=== PATIENT | female | born 1955 | race Caucasian/White ===

== ENCOUNTER 2022-09-25 07:21 | Day surgery (SDC) | payer OTHER ==
[2022-09-25] MEDS ORDERED: NA CHLORIDE 0.9% 1,000 ML ONE (07:47)
[2022-09-25] MEDS ORDERED: propofoL 200 MG/20 ML VIAL IV ONE (08:41)
[2022-09-25] MEDS ORDERED: FENTANYL CITR 100 MCG/2 ML ONE (08:41)
[2022-09-25] MEDS ORDERED: LIDOCAINE 2% MPF 5 ML VIAL ONE (08:41)
[2022-09-25] MEDS ORDERED: MIDAZOLAM HCL 2 MG/2 ML INJ ONE (08:42)
[2022-09-25] MEDS ORDERED: ONDANSETRON 4 MG/2 ML VIAL ONE (08:44)
[2022-09-25] MEDS ORDERED: GLYCOPYRROLATE 0.2 MG/ML SYR ONE (08:46)
[2022-09-25] MEDS ORDERED: ROCURONIUM 50 MG/5 ML VIAL IV ONE (08:46)
[2022-09-25] MEDS ORDERED: NEOSTIGMINE 1 MG/ML -10 ML VIAL ONE (08:48)
[2022-09-25] MEDS: CEFAZOLIN SODIUM 2 GM/VIAL ONE ×3 (08:49→09:42)
[2022-09-25] MEDS: BUPIVACAINE 0.25% PF 30 ML VIAL ONE ×3 (08:50→09:44)
[2022-09-25] MEDS ORDERED: GLUCAGON 1 MG/VIAL IM PRN (10:45)
[2022-09-25] MEDS ORDERED: D50W 25 GM/50 ML SYRINGE IV PRN (10:45)
[2022-09-25] MEDS ORDERED: HOME MED 1 EA UNK (Estradiol [Estradiol] 42.5 GM Cream.Appl) VG SCH (10:45)
[2022-09-25] MEDS ORDERED: IBUPROFEN 200 MG TAB PO PRN (10:47)
[2022-09-25] MEDS ORDERED: PROMETHAZINE INJ 25 MG/ML AMP IV PRN (10:47)
--- NOTE | 2022-09-25 10:51 | P.BOP ---
Preoperative diagnosis: urge incontinence, refractory OAB Postoperative diagnosis: same Primary procedure: [id number], insertion quadripolar tined lead,fluoro guidance,Lf S3 Estimated blood loss: min Specimen: none Findings: 0,1,2 had both toe and antonio, 3-toe better than antonio Anesthesia: General Complications: None Transferred to: Recovery Room Condition: Good
[2022-09-25 12:05] VITALS: O2SAT 96
[2022-09-25 13:06] VITALS: BP 133/67; TEMP 98.3
--- NOTE | 2022-09-25 13:07 | RAD REPORT ---
EXAM DESCRIPTION: RAD - Fluoroscopy <1 Hour - 09/25/2022 12:55 pm CLINICAL HISTORY: SACRAL NEURAL MODULATION COMPARISON: None available. FINDINGS: Eight Images were sent to PACS, documenting needle positions during an image guided pain p rocedure. No radiologist was available for the procedure, nor will any image interpretation he provid ed. Please refer to the procedural report for additional details. Fluoroscopy time: 0.7 Minutes. IMPRESSION: Documentation of fluoroscopy utilization as above.
[2022-09-25] MEDS ORDERED: HOME MED 1 EA UNK (Tizanidine Hcl [Tizanidine Hcl] 4 MG Capsule) PO SCH (14:00)
[2022-09-26] MEDS ORDERED: PANTOPRAZOLE 40MG TABLET PO SCH (09:00)
[2022-09-26] MEDS ORDERED: FAMOTIDINE PO SCH (09:00)
[2022-09-26] MEDS ORDERED: LEVOTHYROXINE SOD 0.125 MG TAB PO SCH (09:00)
[2022-09-26] MEDS ORDERED: HOME MED 1 EA UNK (Magnesium Oxide [Magnesium] 400 MG Capsule) PO SCH (09:00)
[2022-09-26] MEDS ORDERED: GABAPENTIN 100 MG CAP PO SCH (09:00)
[2022-09-26] MEDS ORDERED: ZINC GLUCONATE 50 MG TAB PO SCH (09:00)
[2022-09-26] MEDS ORDERED: [UNRECOGNIZED DRUG - OTHER] PO SCH (09:00)
[2022-09-26] MEDS ORDERED: NPH (HUMAN) 100 UNITS/ML INSULIN SQ SCH (09:00)
[2022-09-26] MEDS ORDERED: LIOTHYRONINE SOD 5 MCG TAB PO SCH (09:00)
[2022-09-26] MEDS ORDERED: TACROLIMUS 1 MG PO SCH (09:00)
[2022-09-26] MEDS ORDERED: ESCITALOPRAM 20 MG TAB PO SCH (09:00)
[2022-09-26] MEDS ORDERED: CA CARB PO SCH (09:00)
[2022-09-26] MEDS ORDERED: MAG HYDROX PO SCH (09:00)
[2022-09-26] MEDS ORDERED: ALENDRONATE SODIUM PO SCH (10:45)
[2022-09-26] MEDS ORDERED: DRISDOL (VITAMIN D=ERGOCALCIFEROL) 50000 UNIT CAP PO SCH (10:45)
== END 2022-09-25 12:55 | disposition home or self-care (01) ==
LOC: OR 07:21
PROVIDERS: ATTEND Obstetrics & Gynecology
PROC: 01HY3MZ Insertion of Neurostimulator Lead into Peripheral Nerve, Percutaneous Approach (ICD-10-PCS; principal; 2022-09-25 08:30)
DX: N39.41 Urge incontinence (principal); N39.3 Stress incontinence (female) (male); N32.81 Overactive bladder; N81.84 Pelvic muscle wasting; N95.2 Postmenopausal atrophic vaginitis; Z94.4 Liver transplant status; I10 Essential (primary) hypertension; E11.9 Type 2 diabetes mellitus without complications
CPT/HCPCS: 64561; 82947 ×2; J2704; J2710; J2001; J2250; J3010; J7030; J2405; 76000

== ENCOUNTER 2022-10-02 08:00 | Day surgery (SDC) | payer OTHER ==
[2022-10-02] MEDS ORDERED: Ringers Lactate 1,000 ML IV ONE (09:19)
[2022-10-02] MEDS ORDERED: CEFAZOLIN SODIUM 2 GM/VIAL ONE (09:55)
[2022-10-02] MEDS ORDERED: MIDAZOLAM HCL 2 MG/2 ML INJ ONE (10:28)
[2022-10-02] MEDS ORDERED: propofoL 200 MG/20 ML VIAL IV ONE (10:28)
[2022-10-02] MEDS ORDERED: FENTANYL CITR 100 MCG/2 ML ONE (10:28)
[2022-10-02] MEDS ORDERED: LIDOCAINE 2% MPF 5 ML VIAL ONE (10:29)
[2022-10-02] MEDS ORDERED: LIDOCAINE 1% W/EPI 1:100,000 50 ML MDV ONE (10:45)
[2022-10-02] MEDS ORDERED: ROCURONIUM 50 MG/5 ML VIAL IV ONE (10:52)
[2022-10-02] MEDS ORDERED: dexAMETHasone 10 MG/ML VIAL ONE (10:53)
[2022-10-02] MEDS ORDERED: KETOROLAC 30 MG/ML INJ ONE (10:53)
[2022-10-02] MEDS ORDERED: ONDANSETRON 4 MG/2 ML VIAL ONE (10:53)
[2022-10-02] MEDS ORDERED: NS 0.9% VIAL 20 ML ONE (11:37)
[2022-10-02] MEDS ORDERED: SUGAMMADEX SODIUM 200 MG/2 ML VIAL IV ONE (12:21)
[2022-10-02] MEDS ORDERED: HYDROCODONE/APAP 5/325 MG TAB PO PRN (12:42)
[2022-10-02] MEDS ORDERED: IBUPROFEN 200 MG TAB PO PRN (12:42)
[2022-10-02] MEDS ORDERED: PROMETHAZINE INJ 25 MG/ML AMP IV PRN (12:42)
--- NOTE | 2022-10-02 12:48 | P.BOP ---
Preoperative diagnosis: Urgency UUI, refractory OAB, LAST Postoperative diagnosis: same Primary procedure: Incision+subcut implantation of sacral nerve stimulator Secondary procedure: electronic analysis+programming, urethral Bulking, cysto Maintenance Pipefitter: Dawn Calixto Estimated blood loss: min Specimen: none Findings: Bulkamid 1.6ml Anesthesia: General Complications: None Implants: Interstim sacral neurostim, Bulkamid Fluids & blood products: UO 200 Transferred to: Recovery Room
[2022-10-02 13:26] VITALS: BP 137/62; TEMP 97.3; O2SAT 100
--- NOTE | 2022-10-02 14:48 | RAD REPORT ---
EXAM DESCRIPTION: RAD - Fluoroscopy <1 Hour - 10/02/2022 1:14 pm CLINICAL HISTORY: SACRAL NEURO MODULATION 2 COMPARISON: Fluoroscopy <1 Hour dated 09/25/2022 FINDINGS/IMPRESSION: Three intraoperative fluoroscopic images were submitted. This shows placement o f a bladder stimulator. Fluoro time: 0 minutes Cumulative dose: 1.05 mGy
== END 2022-10-02 14:54 | disposition home or self-care (01) ==
LOC: OR 08:00
PROVIDERS: ATTEND Obstetrics & Gynecology
PROC: 0JH73BZ Insertion of Single Array Stimulator Generator into Back Subcutaneous Tissue and Fascia, Percutaneous Approach (ICD-10-PCS; principal; 2022-10-02 10:15)
DX: N39.46 Mixed incontinence (principal); N32.81 Overactive bladder
CPT/HCPCS: 82947; 64590; J2704; J2001; J2250; J3010; J1100; A4216; J7120; J2405; L8606; 76000

== ENCOUNTER 2023-06-20 20:51 | Inpatient (IN) | payer OTHER ==
[2023-06-20] MEDS ORDERED: ALBUMIN HUMAN 25% 100 ML IV ONE (21:44)
[2023-06-20] MEDS ORDERED: NA CHLORIDE 0.9% 1,000 ML ONE (21:44)
[2023-06-20] MEDS ORDERED: NA CHLORIDE 0.9% 0 ML ONE (21:44)
[2023-06-20 21:51] LABS: Absolute Lymphocytes (CBC) 0.8 K/uL (0.7-4.9); Hematocrit 31.1 % (36.0-45.0); Lymphocytes % 15.6 % (15.3-44.8); MCV 90.3 fL (80-100); MPV 6.2 fL (7.6-11.3); Platelets 155 thou/uL (152-406); RBC Red Blood Cell Count 3.45 M/uL (3.86-4.86)
[2023-06-20 22:07] LABS: Protime INR 1.61
--- NOTE | 2023-06-20 22:16 | RAD REPORT ---
EXAM DESCRIPTION: [place] Single View06/20/2023 9:49 pm CLINICAL HISTORY: CHEST PAIN COMPARISON: Chest Pa And Lat (2 Views) dated 05/18/2021; Chest Pa And Lat (2 Views) dated 06/08/2020; CHEST PA AND LAT 2 VIEW dated 10/27/2010; TECHNIQUE: Portable AP view of the chest. FINDINGS: Moderate to large left pleural effusion. Marked cardiomegaly. Central interstitial promine nce. . The mediastinal contours are unremarkable. IMPRESSION: Findings suggestive of central congestion/CHF, with a moderate pleural effusion. Underl johnny left lung pneumonia cannot be excluded.
[2023-06-20 23:12] LABS: Potassium 4.1 mEq/L (3.5-5.1)
[2023-06-20 23:13] LABS: Bilirubin Direct 0.2 mg/dL (0-0.2); Bilirubin Indirect, Calculated 0.4 mg/dL (0.2-0.8); Bilirubin Total 0.6 mg/dL (0.2-1.0)
[2023-06-20 23:14] LABS: Albumin 2.9 g/dL (3.4-5.0); Protein, Total 5.7 g/dL (6.4-8.2)
[2023-06-20 23:17] LABS: Troponin High Sensitivity 11.8 (<58.9)
[2023-06-20 23:18] LABS: C-Reactive Protein 21.8; Magnesium 1.6
--- NOTE | 2023-06-21 00:46 | EDPHYS ---
Physician Documentation [facility] Name: Marzena Sidhu Age: 67 yrs Sex: Female : 1955 Arrival Date: 06/20/2023 Time: 20:51 Bed 7 Private MD: ED Physician Eamon Alfaro HPI: 06/20 20:56 This 67 yrs old Female presents to ER via Unassigned with complaints of LOW sp4 BLOOD PRESSURE, Dizziness, Shortness Of Breath. 21:21 The patient is a 67-year-old female with history of fibromyalgia history of atrial sp4 fibrillation history of right pleural effusion history of liver transplant. Patient states she has been feeling unwell for the past 4 months. She was diagnosed with atrial fibrillation started on Eliquis and metoprolol. Patient was at Dr. Glass office at [facility] where it was noted that her pressure was low today. Patient reports dizziness and shortness of breath denied chest pain. Patient reports generalized weakness. . Historical: - Allergies: 21:08 No Known Allergies; rv - PMHx: 21:08 Atrial fibrillation; fluid in the left lung; liver transplant; rv - PSHx: 21:08 liver transplant; Cholecystectomy; Total abdominal hysterectomy; rv - Immunization history:: Adult Immunizations up to date. - Social history:: Smoking status: Patient/guardian denies using tobacco, the patient reports quitting approximately 6 years ago. - Family history:: not pertinent. ROS: 21:21 Constitutional: Negative for fever, chills, and weight loss, positive generalized sp4 weakness dizziness, positive shortness of breath Eyes: Negative for injury, pain, redness, and discharge, ENT: Negative for injury, pain, and discharge, Neck: Negative for injury, pain, and swelling, Cardiovascular: Negative for chest pain, palpitations, and edema, 21:21 All other systems are negative, Exam: 21:21 Constitutional: This is a well developed, well nourished patient who is awake, alert, sp4 and in no acute distress. Ill appearing, gen weakness, Head/Face: Normocephalic, atraumatic. Eyes: Pupils equal round and reactive to light, extra-ocular motions intact. Lids and lashes normal. Conjunctiva and sclera are not injected. Cornea within normal limits. Periorbital areas with no swelling, redness, or edema. ENT: Nares patent. No nasal discharge, no septal abnormalities noted. Tympanic membranes are normal and external auditory canals are clear. Oropharynx with no redness, swelling, or masses, exudates, or evidence of obstruction, uvula midline. Mucous membranes moist. Neck: Trachea midline, no thyromegaly or masses palpated, and no cervical lymphadenopathy. Supple, full range of motion without nuchal rigidity, or vertebral point tenderness. Chest/axilla: Normal chest wall appearance and motion. Nontender with no deformity. No lesions are appreciated. Cardiovascular: Regular rate and rhythm with a normal S1 and S2. No gallops, murmurs, or rubs. Normal PMI, no JVD. No pulse deficits. Respiratory: Lungs have equal breath sounds bilaterally, clear to auscultation and percussion. No rales, rhonchi or wheezes noted. No increased work of breathing, no retractions or nasal flaring. Abdomen/GI: Soft, non-tender, with normal bowel sounds. No distension or tympany. No guarding or rebound. No evidence of tenderness throughout. Back: No spinal tenderness. No costovertebral tenderness. Skin: Warm, dry with normal turgor. Normal color with no rashes, no lesions, and no evidence of cellulitis. MS/ Extremity: Pulses equal, no cyanosis. Neurovascular intact. Full, normal range of motion. Neuro: Awake and alert, GCS 15, oriented to person, place, time, and situation. Cranial nerves II-XII grossly intact. Motor strength 5/5 in all extremities. Sensory grossly intact. Psych: Awake, alert, with orientation to person, place and time. Behavior, mood, and affect are within normal limits 06/21 00:47 ECG was reviewed by the Attending Physician. EKG 2130 there is sinus bradycardia at the sp4 rate of 50, right bundle branch block, otherwise normal EKG. Vital Signs: 06/20 21:04 BP 93 / 45; Pulse 51; Resp 18; Temp 98; Pulse Ox 94% on R/A; Weight 77.56 kg; Height 5 rv ft. 4 in. ; 22:30 BP 118 / 69; Pulse 52; Resp 18; Pulse Ox 96% ; rv1 23:31 BP 118 / 66; Pulse 49; Resp 19; Pulse Ox 96% ; jj7 11/17 00:29 BP 109 / 61; Pulse 55; Resp 20 S; Pulse Ox 95% on 2 lpm NC; jw7 01:30 BP 107 / 64; Pulse 49; Resp 17 S; Pulse Ox 97% on 2 lpm NC; jw7 02:30 BP 108 / 69; Pulse 50; Resp 16 S; Pulse Ox 96% on 2 lpm NC; jw7 03:30 BP 111 / 65; Pulse 52; Resp 17; Pulse Ox 94% ; jj7 04:30 BP 107 / 62; Pulse 48; Resp 15; Pulse Ox 97% ; jj7 05:32 BP 124 / 63; Pulse 49; Resp 16; Pulse Ox 98% ; jj7 06:35 BP 117 / 78; Pulse 51; Resp 13; Pulse Ox 96% on 2 lpm NC; jj7 06/20 21:04 Body Mass Index 29.35 (77.56 kg, 162.56 cm) rv MDM: 06/20 20:56 Patient medically screened. sp4 06/21 00:39 ED course: CT report - IMPRESSION: 1. No evidence for thoracic aortic aneurysm or sp4 dissection. 2. Stable 3.1 cm abdominal aortic aneurysm. Recommend follow-up every 3 years. Reference: J Am José Miguel Radiol 2013;10:789-794. 3. Large left pleural effusion. Extensive near complete left lung consolidation/collapse. Superimposed infiltrate is not excluded. No appreciable central mass. Follow-up is suggested. 4. Mild circumferential urinary bladder wall thickening. Please correlate clinically for cystitis. 5. Other findings as above. Electronically signed by: Richy Garnica MD 06/21/2023 12:17 AM. ED course: Chest X ray - EXAM DESCRIPTION: FANNYChest Single View06/20/2023 9:49 pm CLINICAL HISTORY: CHEST PAIN COMPARISON: Chest Pa And Lat (2 Views) dated 05/18/2021; Chest Pa And Lat (2 Views) dated 06/08/2020; CHEST PA AND LAT 2 VIEW dated 10/27/2010; TECHNIQUE: Portable AP view of the chest. FINDINGS: Moderate to large left pleural effusion. Marked cardiomegaly. Central interstitial prominence. . The mediastinal contours are unremarkable. IMPRESSION: Findings suggestive of central congestion/CHF, with a moderate pleural effusion. Underlying left lung pneumonia cannot be excluded.. 00:46 Differential diagnosis: cardiac arrhythmia, generalized weakness, head injury, sp4 hypovolemia, idiopathic dizziness, near-syncope, . Data reviewed: vital signs, nurses notes, old medical records, lab test result(s), EKG, radiologic studies, CT scan, plain films. Consideration of Admission/Observation Patient was admitted/placed on observation. Escalation of care including admission/observation considered. Management of patient was discussed with the following: Hospitalist: Hospitalist. Drill Punch Operator: Global Program Director. ED course: Patient has moderate to large left-sided pleural effusion without any signs of lung mass. ED course: Patient also has some signs of congestive heart failure without signs of atrial fibrillation. Patient has sinus bradycardia on her EKG. She warrants admission for pulmonology consultation. Dr. Bean with pulmonology was consulted for drainage of pleural effusion. . 06/20 20:56 Order name: COVID-19 SARS RT PCR; Complete Time: 22:54 sp4 06/20 20:56 Order name: Influenza Screen (a \T\ B); Complete Time: 22:54 sp4 06/20 21:20 Order name: Basic Metabolic Panel; Complete Time: 23:25 sp4 06/20 21:20 Order name: CBC with Diff; Complete Time: 22:54 sp4 06/20 21:20 Order name: LFT's; Complete Time: 23:25 sp4 06/20 21:20 Order name: Magnesium; Complete Time: 23:25 sp4 06/20 21:20 Order name: NT PRO-BNP; Complete Time: 23:25 sp4 06/20 21:20 Order name: PT-INR; Complete Time: 22:54 sp4 06/20 21:20 Order name: Troponin HS; Complete Time: 23:25 sp4 06/20 21:21 Order name: CRP; Complete Time: 23:25 sp4 06/21 08:38 Order name: Basic Metabolic Panel [facility] 06/21 08:38 Order name: Basic Metabolic Panel [facility] 06/21 08:38 Order name: Basic Metabolic Panel [facility] 06/21 08:38 Order name: Basic Metabolic Panel [facility] 06/21 08:38 Order name: Basic Metabolic Panel [facility] 06/21 08:38 Order name: Basic Metabolic Panel [facility] 06/21 08:38 Order name: CBC with Automated Diff [facility] 06/21 08:38 Order name: CBC with Automated Diff EDMS 06/21 08:38 Order name: CBC with Automated Diff EDMS 06/21 08:38 Order name: CBC with Automated Diff EDMS 06/21 08:38 Order name: CBC with Automated Diff EDMS 06/21 08:38 Order name: CBC with Automated Diff EDMS 06/21 08:38 Order name: Magnesium EDMS 06/21 08:38 Order name: Magnesium EDMS 06/21 08:38 Order name: Magnesium EDMS 06/21 08:38 Order name: Magnesium EDMS 06/21 08:38 Order name: Magnesium EDMS 06/21 08:38 Order name: Magnesium EDMS 06/21 08:38 Order name: Phosphorus EDMS 06/21 08:38 Order name: Phosphorus EDMS 06/21 08:38 Order name: Phosphorus EDMS 06/21 08:38 Order name: Phosphorus EDMS 06/21 08:38 Order name: Phosphorus EDMS 06/21 08:38 Order name: Phosphorus EDMS 06/21 08:38 Order name: Troponin High Sensitivity EDMS 06/21 08:38 Order name: Troponin High Sensitivity EDMS 06/21 08:38 Order name: Troponin High Sensitivity EDMS 06/21 14:12 Order name: Body Fluid Cell Count EDMS 06/21 14:22 Order name: Gram Stain EDMS 06/20 21:20 Order name: XRAY Chest (1 view); Complete Time: 22:54 sp4 06/20 21:21 Order name: CT Aorta for Dissection sp4 06/21 09:08 Order name: Thoracentesis w/ US Guide EDMS 06/21 11:09 Order name: RAD EDMS 06/20 21:20 Order name: EKG; Complete Time: 21:22 sp4 06/20 21:20 Order name: Cardiac monitoring; Complete Time: 21:28 sp4 06/20 21:20 Order name: EKG - Nurse/Tech; Complete Time: 21:36 sp4 06/20 21:20 Order name: IV Saline Lock; Complete Time: 21:43 sp4 06/20 21:20 Order name: Labs collected and sent; Complete Time: 21:43 sp4 06/20 21:20 Order name: O2 Per Protocol; Complete Time: 21:28 sp4 06/20 21:20 Order name: O2 Sat Monitoring; Complete Time: 21:28 sp4 EC:47 Rate is 50 beats/min. Rhythm is regular, Sinus bradycardia. QRS [place] is Normal. [place] sp4 interval is normal. QRS interval is prolonged. QT interval is normal. No Q waves. T waves are Normal. No ST changes noted. Clinical impression: No evidence of ischemia. Interpreted by me. Reviewed by me. Administered Medications: 06/20 21:46 Drug: NS 0.9% IV 1000 ml IV at 125 ml/hr continuous Route: IV; Rate: 125 ml/hr; Site[facility] left antecubital; 06/21 00:33 Follow up: IV Status: Order to discontinue infusion jj7 03:18 Follow up: Response: No adverse reaction; IV Status: Completed infusion; IV Intake: jw7 100ml 06/20 22:20 Drug: Albumin IVPB 25 grams 100 ml IVPB once; (Note: Albumin 25% concentration) Volume: jw7 100 ml; Route: IVPB; Site: left antecubital; 06/21 03:18 Follow up: Response: No adverse reaction; IV Status: Completed infusion; IV Intake: [id number] 01:00 Drug: HYDROcodone-acetaminophen PO 5 mg-325 mg 2 tabs PO once Route: PO; jw7 03:24 Follow up: Response: No adverse reaction; Marked relief of symptoms jw7 01:00 Drug: Ondansetron PO 4 mg PO once Route: PO; jw7 03:24 Follow up: Response: No adverse reaction jw7 03:24 Not Given (Physician Discretion): grams 100 ml IVPB once; (Note: Albumin 25% jw7 concentration) 04:32 Drug: [place] PO 10 mg-325 mg 1 tabs PO once Route: PO; jw7 04:32 Drug: MetoCLOPramide PO 10 mg PO once Route: PO; jw7 Disposition Summary: 06/21/23 00:45 Hospitalization Ordered Notes: Hospitalization Status: Inpatient Admission sp4 Provider: Carmelo Eaton sp4 Condition: Stable sp4 Problem: new sp4 Symptoms: are unchanged sp4 Bed/Room Type: Standard sp4 Location: Telemetry/MedSurg (Inpatient)(06/21/23 15:58) eb Room Assignment: [facility](06/21/23 15:58) eb Diagnosis - Pleural effusion, not elsewhere classified sp4 - Acute dyspnea, left large pleural effusion, congestive heart failure with sp4 exacerbation Forms: - Medication Reconciliation Form sp4 - SBAR form sp4 - Leadership Thank You Letter sp4 Signatures: Dispatcher [employer] Jonathan Kerns, RN RN bp Mari Maria Ronaldo, RN RN Rachel Bernard RN RN jw7 Eamon Alfaro MD MD sp4 Pawel Alvarado RN jj7 Corrections: (The following items were deleted from the chart) 05:44 00:45 Telemetry/MedSurg (Inpatient) sp4 bp 05:44 00:45 sp4 bp 15:58 05:44 BR ER HOLD bp eb 15:58 05:44 ERHOLD- bp eb 15:58 15:58 eb eb
--- NOTE | 2023-06-21 00:46 | ER ---
Nurse's Notes [facility] Name: Marzena Sidhu Age: 67 yrs Sex: Female : 1955 Arrival Date: 06/20/2023 Time: 20:51 Bed 7 Private MD: Diagnosis: Pleural effusion, not elsewhere classified;Acute dyspnea, left large pleural effusion, congestive heart failure with exacerbation Presentation: 06/20 21:04 Chief complaint: Patient states: new blood pressure medication started today, rv complained of dizziness after taking medication this morning, being treated for A-fib and fluid in the left lung. Coronavirus screen: At this time, the client does not indicate any symptoms associated with coronavirus-19. Ebola Screen: No symptoms or risks identified at this time. Initial Sepsis Screen: Does the patient meet any 2 criteria? No. Patient's initial sepsis screen is negative. Does the patient have a suspected source of infection? No. Patient's initial sepsis screen is negative. Risk Assessment: Do you want to hurt yourself or someone else? Patient reports no desire to harm self or others. Onset of symptoms was June 20, 2023. 21:04 Method Of Arrival: Ambulatory rv 21:04 Acuity: LYNDA 2 rv Triage Assessment: 21:08 General: Appears comfortable, Behavior is calm, cooperative. Pain: Denies pain. Neuro: rv Level of Consciousness is awake, alert, Oriented to person, place, time, situation. Cardiovascular: Capillary refill < 3 seconds Patient's skin is warm and dry. Respiratory: Reports shortness of breath on exertion Onset: The symptoms/episode began/occurred gradually, the patient has mild shortness of breath. GI: No signs and/or symptoms were reported involving the gastrointestinal system. : No signs and/or symptoms were reported regarding the genitourinary system. Derm: Skin is intact. Historical: - Allergies: 21:08 No Known Allergies; rv - PMHx: 21:08 Atrial fibrillation; fluid in the left lung; liver transplant; rv - PSHx: 21:08 liver transplant; Cholecystectomy; Total abdominal hysterectomy; rv - Immunization history:: Adult Immunizations up to date. - Social history:: Smoking status: Patient/guardian denies using tobacco, the patient reports quitting approximately 6 years ago. - Family history:: not pertinent. Screenin:17 [facility] ED Fall Risk Assessment (Adult) History of falling in the last 3 months, jw7 including since admission No falls in past 3 months (0 pts) Score/Fall Risk Level 0 - 2 = Low Risk Oriented to surroundings, Maintained a safe environment. Abuse screen: Denies threats or abuse. Denies injuries from another. Nutritional screening: No deficits noted. Tuberculosis screening: No symptoms or risk factors identified. Assessment: 21:17 General: see triage assessment. jw7 22:00 Reassessment: Patient appears in no apparent distress at this time. No changes from 7 previously documented assessment. Patient and/or family updated on plan of care and expected duration. Pain level reassessed. Patient is alert, oriented x 3, equal unlabored respirations, skin warm/dry/pink. 23:15 Reassessment: Patient appears in no apparent distress at this time. No changes from jw7 previously documented assessment. Patient and/or family updated on plan of care and expected duration. Pain level reassessed. Patient is alert, oriented x 3, equal unlabored respirations, skin warm/dry/pink. 06/21 00:27 Cardiovascular: Rhythm is sinus bradycardia. Respiratory: Airway is patent Trachea jw7 midline Respiratory effort is even, unlabored, Respiratory pattern is regular, symmetrical, Breath sounds with crackles in left upper lobe and left lower lobe. 01:30 Reassessment: Patient appears in no apparent distress at this time. No changes from jw7 previously documented assessment. Patient and/or family updated on plan of care and expected duration. Pain level reassessed. Patient is alert, oriented x 3, equal unlabored respirations, skin warm/dry/pink. 02:21 Reassessment: Patient appears in no apparent distress at this time. Patient and/or jw7 family updated on plan of care and expected duration. Pain level reassessed. Patient is alert, oriented x 3, equal unlabored respirations, skin warm/dry/pink. Patient states symptoms have improved. 03:25 Reassessment: Patient appears in no apparent distress at this time. No changes from jw7 previously documented assessment. Patient and/or family updated on plan of care and expected duration. Pain level reassessed. Patient is alert, oriented x 3, equal unlabored respirations, skin warm/dry/pink. Vital Signs: 06/20 21:04 BP 93 / 45; Pulse 51; Resp 18; Temp 98; Pulse Ox 94% on R/A; Weight 77.56 kg; Height 5 rv ft. 4 in. ; 22:30 BP 118 / 69; Pulse 52; Resp 18; Pulse Ox 96% ; rv1 23:31 BP 118 / 66; Pulse 49; Resp 19; Pulse Ox 96% ; jj7 06/21 00:29 BP 109 / 61; Pulse 55; Resp 20 S; Pulse Ox 95% on 2 lpm NC; jw7 01:30 BP 107 / 64; Pulse 49; Resp 17 S; Pulse Ox 97% on 2 lpm NC; jw7 02:30 BP 108 / 69; Pulse 50; Resp 16 S; Pulse Ox 96% on 2 lpm NC; jw7 03:30 BP 111 / 65; Pulse 52; Resp 17; Pulse Ox 94% ; jj7 04:30 BP 107 / 62; Pulse 48; Resp 15; Pulse Ox 97% ; jj7 05:32 BP 124 / 63; Pulse 49; Resp 16; Pulse Ox 98% ; jj7 06:35 BP 117 / 78; Pulse 51; Resp 13; Pulse Ox 96% on 2 lpm NC; jj7 06/20 21:04 Body Mass Index 29.35 (77.56 kg, 162.56 cm) rv ED Course: 06/20 20:55 Patient arrived in ED. ag3 20:56 Eamon Alfaro MD is Attending Physician. sp4 21:08 Triage completed. rv 21:08 Arm band placed on right wrist. rv 21:17 Patient has correct armband on for positive identification. Bed in low position. Call [facility] light in reach. Side rails up X2. 21:21 Influenza Screen (a \T\ B) Sent. cg3 21:21 COVID-19 SARS RT PCR Sent. cg3 21:35 Inserted saline lock: 20 gauge in left antecubital area, using aseptic technique. Blood jj7 collected. 21:40 Pawel Alvarado RN is Primary Nurse. jj7 21:43 Basic Metabolic Panel Sent. jj7 21:43 CBC with Diff Sent. jj7 21:43 LFT's Sent. jj7 21:43 Magnesium Sent. jj7 21:43 NT PRO-BNP Sent. jj7 21:43 PT-INR Sent. jj7 21:43 Troponin HS Sent. jj7 21:44 Influenza Screen (a \T\ B) Sent. jj7 21:45 COVID-19 SARS RT PCR Sent. jj7 21:51 XRAY Chest (1 view) In Process Unspecified. EDMS 23:48 CT Aorta for Dissection In Process Unspecified. EDMS 06/21 00:44 Carmelo Eaton MD is Hospitalizing Provider. sp4 03:28 Provided Education on: Need for admit. jw7 03:28 No provider procedures requiring assistance completed. Patient admitted, IV remains in jw7 place. Administered Medications: 06/20 21:46 Drug: NS 0.9% IV 1000 ml IV at 125 ml/hr continuous Route: IV; Rate: 125 ml/hr; Site: [facility] left antecubital; 06/21 00:33 Follow up: IV Status: Order to discontinue infusion jj7 03:18 Follow up: Response: No adverse reaction; IV Status: Completed infusion; IV Intake: jw7 100ml 06/20 22:20 Drug: Albumin IVPB 25 grams 100 ml IVPB once; (Note: Albumin 25% concentration) Volume: jw7 100 ml; Route: IVPB; Site: left antecubital; 06/21 03:18 Follow up: Response: No adverse reaction; IV Status: Completed infusion; IV Intake: 81raph4 01:00 Drug: HYDROcodone-acetaminophen PO 5 mg-325 mg 2 tabs PO once Route: PO; jw7 03:24 Follow up: Response: No adverse reaction; Marked relief of symptoms jw7 01:00 Drug: Ondansetron PO 4 mg PO once Route: PO; jw7 03:24 Follow up: Response: No adverse reaction jw7 03:24 Not Given (Physician Discretion): [id number] grams 100 ml IVPB once; (Note: Albumin 25% jw7 concentration) 04:32 Drug: [place] PO 10 mg-325 mg 1 tabs PO once Route: PO; jw7 04:32 Drug: MetoCLOPramide PO 10 mg PO once Route: PO; jw7 Medication: 03:27 VIS not applicable for this client. jw7 Intake: 03:18 IV: 50ml; Total: 50ml. jw7 03:18 IV: 100ml; Total: 150ml. jw7 Outcome: 00:45 Decision to Hospitalize by Provider. sp4 17:40 Patient left the ED. hb Signatures: Dispatcher [employer] EDMS Cookie Hebert RN RN Aftab Zacarias, RN RN Sehlby Mejia ag3 Rachel Bernard RN RN jw7 Pawel Alvarado RN RN jj7 Marzena Willams rv1 Eamon Alfaro MD MD sp4 Romana Rizo 3 Corrections: (The following items were deleted from the chart) 03:23 06/20 21:46 Albumin IVPB 25 grams 100 ml IVPB in left antecubital jw7 jw7 06/21 03:26 02:21 Reassessment: Patient appears in no apparent distress at this time. No changes jw7 from previously documented assessment. Patient and/or family updated on plan of care and expected duration. Pain level reassessed. Patient is alert, oriented x 3, equal unlabored respirations, skin warm/dry/pink. jw7
[2023-06-21] MEDS ORDERED: HYDROCODONE/APAP 5/325 MG TAB ONE (01:01)
[2023-06-21] MEDS ORDERED: ONDANSETRON 4 MG (ODT) TAB ONE (01:01)
[2023-06-21] MEDS ORDERED: METOCLOPRAMIDE 5 MG TAB ONE ×2 (04:35→04:45)
[2023-06-21] MEDS ORDERED: HYDROCODONE/APAP 10/325 TAB ONE ×3 (04:35→17:18)
[2023-06-21] MEDS ORDERED: ACETAMINOPHEN 500 MG TAB PO PRN (08:28)
[2023-06-21] MEDS ORDERED: HEPARIN 5000 UNIT/ML 1 ML VIAL SQ SCH (09:00)
[2023-06-21] MEDS ORDERED: GABAPENTIN 300 MG CAP PO SCH (09:08)
--- NOTE | 2023-06-21 09:21 | P.HP ---
Certification for Inpatient Patient admitted to: Observation With expected LOS: >2 Midnights Practitioner: I am a practitioner with admitting privileges, knowledge of patient current condition, hospital course, and medical plan of care. Services: Services provided to patient in accordance with Admission requirements found in Title 42 Section 412.3 of the Code of Federal Regulations Patient History Date of Service: 06/21/23 Reason for admission: SOB History of Present Illness: Marzena Sidhu is a 67-year-old female with past medical history hypothyroidism, liver transplant 2018, diabetes type 2IDDM, chronic pain from scoliosis and fibromyalgia, Atrial fibrillation, and right pleural effusion who presents to the ED with complaints of shortness of breath, dizziness, low blood pressure. Marzena reports shortness of breath onset yesterday and she made a doctor's appointment for today where her low blood pressure was found. Upon examination CT scan reported large pleural effusion to left lung space requiring thoracentesis. Dr. Henderson performed that thoracentesis this morning pulling out to 1.8 L of fluid which was sent to the lab for evaluation. Marzena tolerated this well. On initial examination Marzena is on room 2 L nasal cannula, able to talk complete sentences, and in no acute distress. while in the ED she was given albumin, Reglan, and 1500 normal saline. Initial vital BP 93 / 45; Pulse 51; Resp 18; Temp 98; Pulse Ox 94% on R/A. Lab values mostly unremarkable BNP 1506. CT CAP reports "Stable 3.1 cm abdominal aortic aneurysm, Large left pleural effusion. Extensive near complete left lung consolidation/collapse. Superimposed infiltrate is not excluded". EKG reports "Marked sinus bradycardia, Right bundle branch block, Abnormal ECG, Compared to ECG 08/15/2010 09:11:44 Right bundle-branch block now present Sinus rhythm no longer present" Chest x-ray report "suggestive of central congestion/CHF, with a moderate pleural effusion. Underlying left lung pneumonia cannot be excluded." Echocardiogram report "EF 56%, mild mitral and tricuspid regurgitation, moderate diastolic dysfunction" Marzena will be admitted to hospitalist service for further evaluation and treatment. Allergies No Known Allergies Allergy (Verified 09/19/22 12:15) Home Medications: Alendronate Sodium 70 mg PO EVERY 7TH DAY 09/19/22 Ergocalciferol (Vitamin D2) [Vitamin D2] 50,000 unit PO WE 09/19/22 Escitalopram Oxalate 20 mg PO DAILY 09/19/22 Gabapentin 2 tab PO BID 09/19/22 Insulin NPH Human Isophane [Novolin N] 10 unit SQ DAILY 09/19/22 Levothyroxine Sodium 1 tab PO DAILY 09/19/22 Liothyronine Sodium [Cytomel] 5 mcg PO DAILY 09/19/22 Magnesium Oxide [Magnesium] 400 mg PO DAILY 09/19/22 Pantoprazole Sodium 2 tab PO DAILY 09/19/22 Tacrolimus 1 mg PO DAILY 09/19/22 Zinc Gluconate [Zinc] 50 mg PO DAILY 09/19/22 estradioL [Estradiol] 2 mg VG DIRECTED 09/19/22 Baclofen 10 mg PO BEDTIME 06/21/23 Fludrocortisone [Florinef] 0.1 mg PO DIRECTED 06/21/23 Hydralazine HCl 25 mg PO DIRECTED 06/21/23 Hydralazine HCl 50 mg PO DAILY 06/21/23 Metoprolol Tartrate 25 mg PO BID 06/21/23 Rivaroxaban [Xarelto] 20 mg PO DAILY 06/21/23 Tizanidine HCl 2 mg PO BEDTIME 06/21/23 Torsemide [Demadex*] 20 mg PO DAILY 06/21/23 Torsemide [Demadex] 20 mg PO DAILY 06/21/23 Review of Systems General: Weakness Respiratory: Shortness of Breath Cardiovascular: Palpitations Neurological: Other ("foggy") Physical Examination - Physical Exam General: Alert, In no apparent distress, Oriented x3 HEENT: Atraumatic, Normocephalic, PERRLA Neck: Supple, 2+ carotid pulse no bruit, JVD not distended Respiratory: Diminished Cardiovascular: No edema, Irregular heart rate/rhythm (bradycardic) Capillary refill: <2 Seconds Gastrointestinal: Normal bowel sounds, Soft and benign Musculoskeletal: No clubbing, No swelling, No contractures Integumentary: No rashes, No breakdown, No significant lesion Neurological: Normal speech, Normal strength at 5/5 x4 extr, Normal tone - Studies Laboratory Data (last 24 hrs) 06/20/23 06/20/23 06/20/23 21:38 21:38 21:38 WBC 5.10 Hgb 10.5 L Hct 31.1 L Plt Count 155 PT 17.7 H INR 1.61 Sodium 137 Potassium 4.1 BUN 30 H Creatinine 1.41 H Glucose 159 H Magnesium 1.6 Total Bilirubin 0.6 AST 18 ALT 16 Alkaline Phosphatase 134 H Microbiology Data (last 24 hrs): 06/20/23 21:18 Nasopharnyx Influenza Type A Antigen Screen - Final 06/20/23 21:18 Nasopharnyx Influenza Type B Antigen Screen - Final Assessment and Plan - Plan Assessment and Plan Acute respiratory failure s/s Left sided pleural effusion Left sided pleural effusion US guided Throacentesis today, 1.8 liters off On 3 LNC sating 96% CT CAP reports Stable 3.1 cm abdominal aortic aneurysm, Large left pleural effusion. Extensive near complete left lung consolidation/collapse. Superimposed infiltrate is not excluded. s/p Liver Transplant Continue home medication tacrolimus/Prograf patient provides Stable 3.1 cm abdominal aortic aneurysm Incidental finding on CT CAP Outpatient follow-up MODERATE DIASTOLIC DYSFUNCTION Afib Rate controlled with metoprolol for a short time Now on torsemide On Telemetry xarelto when appropriate EKG showed Sinus Patrick 50 EF 56% DM2 IDDM Novolog N 10 units daily Accucheck with SSI Serum glucose A1C pending DVT ppx: on xarelto Full code LOS 2-3 days Discharge Plan: Home Plan to discharge in: 24 Hours - Advance Directives Does patient have a Living Will: No Does patient have a Durable POA for Healthcare: No Time Spent Managing Pts Care (In Minutes): 55
[2023-06-21] MEDS ORDERED: GABAPENTIN 300 MG CAP ONE (09:45)
--- NOTE | 2023-06-21 11:08 | RAD REPORT ---
EXAM DESCRIPTION: RAD - Chest Single View - 06/21/2023 11:03 am CLINICAL HISTORY: Thoracentesis IMPRESSION: A pneumothorax is not present status post left thoracentesis
[2023-06-21] MEDS: HYDROCODONE/APAP 10/325 TAB PO PRN ×3 (11:30→22:53)
--- NOTE | 2023-06-21 13:15 | RAD REPORT ---
EXAM DESCRIPTION: US - Thoracentesis w/ US Guide - 06/21/2023 11:00 am CLINICAL HISTORY: Left pleural effusion TECHNIQUE: The risks, benefits alternatives to the procedure were explained to the patient and infor med consent obtained. Skin and deeper tissues anesthetized with lidocaine. Under sonographic guidance, an 8 Greek catheter was placed into the posterior lower left pleural spa ce. 1.8 liters of yellow fluid removed. Fluid given to the laboratory Patient experienced no immediate complication IMPRESSION: Thoracentesis
--- NOTE | 2023-06-21 14:02 | RAD REPORT ---
EXAM DESCRIPTION: CT - Angio Aorta For Dissection - 06/21/2023 6:49 am dyspnea, aortic enlargement TECHNIQUE: Axial computed tomographic angiography images of the chest, abdomen and pelvis with intra venous contrast. Sagittal and coronal reformatted images were created and reviewed. This CT exam was performed using one or more of the following dose reduction techniques: automated exposure cont rol, adjustment of the mA and/or kV according to patient size, and/or use of iterative reconstruction technique. MIP reconstructed images were created and reviewed. COMPARISON: Chest abdomen pelvis CT dated 03/03/2020 FINDINGS: VASCULATURE: Aorta: Moderate atherosclerotic disease. No thoracic aortic aneurysm. Infrarenal abdominal aort ic aneurysm measuring 3.1 cm in diameter without significant interval change. No dissection. Pulmonary arteries: Unremarkable as visualized. No pulmonary embolism is identified. Great vessels of aortic arch: No acute findings. No dissection. No arterial occlusion or signif icant stenosis. Celiac trunk and mesenteric arteries: Moderate atherosclerotic narrowing of the celiac trunk at its origin. Renal arteries: Mild to moderate atherosclerotic narrowing of the bilateral renal artery origins. Iliac arteries: No acute findings. No occlusion or significant stenosis. CHEST: Lungs: Near complete left upper lobe and lingular consolidation/collapse. Complete left lower lob e consolidation/collapse. Right lower lobe calcified granuloma. Pleural space: Large left pleural effusion. No pneumothorax. Heart: The heart is mildly enlarged. Coronary artery calcification. No significant pericardial effusion. Mediastinum: Calcified mediastinal and bilateral hilar lymph nodes. ABDOMEN: Liver: Prior liver transplant. Gallbladder and bile ducts: The gallbladder is surgically absent. No ductal dilation. Pancreas: Severe pancreatic parenchymal atrophy. No ductal dilation. Spleen: The spleen is enlarged. Splenic parenchymal calcifications compatible with remote granulo matous organism exposure. Adrenals: Unremarkable. No mass. Kidneys and ureters: Subcentimeter renal hypodensities bilaterally which are too small to character ize. No follow-up imaging is recommended. JACR 2018 Sep; 264-273, Management of the Incidental Re nal Mass on CT, [employer] 2020; 814-848, Bosniak Classification of Cystic Renal Masses, Version 2 019. No hydronephrosis. Stomach and bowel: Moderate stool in the proximal to mid large bowel. No obstruction. No apprec iable mucosal thickening. PELVIS: Appendix: No findings to suggest acute appendicitis. Bladder: Mild circumferential urinary bladder wall thickening. Reproductive: There has been a hysterectomy. No adnexal cysts or masses are identified. CHEST, ABDOMEN and PELVIS: Intraperitoneal space: Small amount of free fluid. No free air. Bones/joints: Multilevel spondylosis. No acute fracture. No dislocation. Soft tissues: Small fat-containing upper ventral abdominal wall hernia. Left gluteal pulse genera tor with a left presacral lead. Lymph nodes: See above. Other findings: Upper abdominal varices. IMPRESSION: 1. No evidence for thoracic aortic aneurysm or dissection. 2. Stable 3.1 cm abdominal aortic aneurysm. Recommend follow-up every 3 years. Reference: J Am José Miguel Radiol 2013;10:789-794. 3. Large left pleural effusion. Extensive near complete left lung consolidation/collapse. Super imposed infiltrate is not excluded. No appreciable central mass. Follow-up is suggested. 4. Mild circumferential urinary bladder wall thickening. Please correlate clinically for cystitis . 5. Other findings as above. Electronically signed by: Richy Garnica MD 06/21/2023 12:[address] Due to temporary technical issues with the PACS/Fluency reporting system, reports are being signed by the in house radiologists without review as a courtesy to insure prompt reporting. The interpreting radiologist is fully responsible for the content of the report.
[2023-06-21 14:12] LABS: Appearance SLT. TURBID (CLEAR); Body Fluid Source PLEURAL; Color of fluid Yellow (COLORLESS)
--- NOTE | 2023-06-21 14:23 | EKG ---
Test Date: 2023-06-20 Test Time: 21:30:31 Chair Spring Assembler: BRENDON MEASUREMENT RESULTS: Intervals: Rate: 49 NE: 154 QRSD: 126 QT: 474 QTc: 428 Edmonds: P: 47 NE: 154 QRS: 64 T: 48 INTERPRETIVE STATEMENTS: Marked sinus bradycardia Right bundle branch block Abnormal ECG Compared to ECG 08/15/2010 09:11:44 Right bundle-branch block now present Sinus rhythm no longer present Electronically Signed On 06-21-23 14:22:02 CUTTER HOT KNIFE by Steven Handy
--- NOTE | 2023-06-21 14:50 | ECHO ---
HEIGHT: 5 ft 4 in WEIGHT: 170 lb 15.848 oz DATE OF STUDY: 06/21/[address]: Veronica Benitez NP 2-DIMENSIONAL: YES M.MODE: YES DOPPLER: YES COLOR FLOW: YES TDS: PORTABLE: YES DEFINITY: NO BUBBLE STUDY: NO DIAGNOSIS: RULE OUT TAMPONADE CARDIAC HISTORY: CATHERIZATION: NO SURGERY: NO PROSTHETIC VALVE: NO PACEMAKER: NO MEASUREMENTS (cm) DIASTOLIC (NORMALS) SYSTOLIC (NORMALS) IVSd 1.3 (0.6-1.2) LA Diam 4.2 (1.9-4.0) LVEF 56% LVIDd 4.6 (3.5-5.7) LVIDs 3.2 (2.0-3.5) %FS 29% LVPWd 1.4 (0.6-1.2) Ao Diam 2.5 (2.0-3.7) 2 DIMENSIONAL ASSESSMENT: RIGHT ATRIUM: NORMAL LEFT ATRIUM: ENLARGED RIGHT VENTRICLE: NORMAL LEFT VENTRICLE: LEFT VENTRICULAR HYPERTROPHY TRICUSPID VALVE: MILD TRICUSPID REGURGITATION MITRAL VALVE: MILD MITRAL REGURGITATION PULMONIC VALVE: MILD PULMONIC INSUFFICIENCY AORTIC VALVE: NORMAL PERICARDIAL EFFUSION: NONE AORTIC ROOT: NORMAL LEFT VENTRICULAR WALL MOTION: NORMAL. DOPPLER/COLOR FLOW: SEE BELOW. COMMENTS: 1. NORMAL LEFT VENTRICULAR EJECTION FRACTION 55-60% NORMAL WALL MOTION. 2. MILD CONCENTRIC LEFT VENTRICULAR HYPERTROPHY. 3. LEFT ATRIAL ENLARGEMENT. 4. MILD MITRAL AND TRICUSPID REGURGITATION. 5. MODERATE DIASTOLIC DYSFUNCTION. 6. NO SIGNIFICANT PERICARDIAL EFFUSION IS SEEN. TECHNOLOGIST: PETE ALMAGUER
[2023-06-21 16:25] LABS: Body Fluid WBC 20 /mm^3
[2023-06-21] MEDS ORDERED: HEPARIN 5000 UNIT/ML 1 ML VIAL ONE (17:18)
[2023-06-21] MEDS: BACLOFEN 10 MG TAB PO SCH (20:49)
[2023-06-21] MEDS: GABAPENTIN 300 MG CAP PO SCH (20:49)
[2023-06-21] MEDS ORDERED: MAGNESIUM SULFATE 1 gm IVPB 1 GM/100 ML BAG IV ONE (22:35)
--- NOTE | 2023-06-21 22:41 | P.PN ---
Date of Service: 06/21/23 Patient nurse called to report that patient is IN Atrial Fibrillation with Rapid Ventricular Response Patient is seen and examined Alert oriented x3 Denies any chest discomfort, palpitation, shortness of breath Afebrile, heart rate 80 to 124/min, blood pressure 150/82, respiratory rate 18, SPO2 97% on room air -EKG done - CXR = third - Potassium = 4.1, Magnesium = 1.7 - Target K> 4, Mg >2 - TSH = ordered - BNP = ordered -pulse oximeter 97% on room air -Started metoprolol 25 mg p.o. twice daily (home medication) -Will resume home anticoagulant Xarelto, -We will continue to monitor the patient closely
[2023-06-21] MEDS: METOPROLOL TAR 25 MG TAB PO SCH ×2 (22:52→22:53)
[2023-06-21] MEDS ORDERED: METOPROLOL TAR 25 MG TAB PO ONE (23:04)
[2023-06-22] MEDS: MORPHINE 2 MG/ML SYR IV PRN ×2 (01:57→08:28)
[2023-06-22 05:13] LABS: Hematocrit 37.3 % (36.0-45.0); Lymphocytes % 13.9 % (15.3-44.8); MPV 6.5 fL (7.6-11.3); Platelets 202 thou/uL (152-406); RBC Red Blood Cell Count 4.14 M/uL (3.86-4.86)
[2023-06-22 05:53] LABS: Potassium 4.5 mEq/L (3.5-5.1); T4,Total 7.2 ug/dL (4.8-13.9); Thyroid Stimulating Hormone 2.82 uIU/mL (0.358-3.740)
[2023-06-22] MEDS: METOPROLOL TAR 25 MG TAB PO SCH ×2 (08:12→20:59)
[2023-06-22] MEDS: LEVOTHYROXINE SOD 0.125 MG TAB PO SCH (08:20)
[2023-06-22] MEDS: LIOTHYRONINE SOD 5 MCG TAB PO SCH (08:20)
[2023-06-22] MEDS: GABAPENTIN 300 MG CAP PO SCH ×2 (08:20→20:59)
[2023-06-22] MEDS: PANTOPRAZOLE 40MG TABLET PO SCH (08:21)
[2023-06-22] MEDS: ESCITALOPRAM 20 MG TAB PO SCH (08:21)
--- NOTE | 2023-06-22 09:45 | P.CNS ---
Date of Consult: 06/22/23 Reason for Consult: Pleural effusion Chief Complaint: SOB History of Present Illness: Patient is 67 years of age admitted to the hospital with low blood pressure apparently she been short of breath for about 2 weeks been progressive was found to have a massive pleural effusion on the left side smoking in 2017 history of liver cirrhosis status post liver transplant denies any fever or chills feeling better Allergies No Known Allergies Allergy (Verified 09/19/22 12:15) Home Medications: Alendronate Sodium 70 mg PO EVERY 7TH DAY 09/19/22 Ergocalciferol (Vitamin D2) [Vitamin D2] 50,000 unit PO WE 09/19/22 Escitalopram Oxalate 20 mg PO DAILY 09/19/22 Gabapentin 2 tab PO BID 09/19/22 Insulin NPH Human Isophane [Novolin N] 10 unit SQ DAILY 09/19/22 Levothyroxine Sodium 1 tab PO DAILY 09/19/22 Liothyronine Sodium [Cytomel] 5 mcg PO DAILY 09/19/22 Magnesium Oxide [Magnesium] 400 mg PO DAILY 09/19/22 Pantoprazole Sodium 2 tab PO DAILY 09/19/22 Tacrolimus 1 mg PO DAILY 09/19/22 Zinc Gluconate [Zinc] 50 mg PO DAILY 09/19/22 estradioL [Estradiol] 2 mg VG DIRECTED 09/19/22 Baclofen 10 mg PO BEDTIME 06/21/23 Fludrocortisone [Florinef] 0.1 mg PO DIRECTED 06/21/23 Hydralazine HCl 25 mg PO DIRECTED 06/21/23 Hydralazine HCl 50 mg PO DAILY 06/21/23 Metoprolol Tartrate 25 mg PO BID 06/21/23 Rivaroxaban [Xarelto] 20 mg PO DAILY 06/21/23 Tizanidine HCl 2 mg PO BEDTIME 06/21/23 Torsemide [Demadex*] 20 mg PO DAILY 06/21/23 Torsemide [Demadex] 20 mg PO DAILY 06/21/23 Review of Systems 10-point ROS is otherwise unremarkable Physical Examination Temp Pulse Resp BP Pulse Ox 98.0 F 66 16 168/86 H 92 06/22/23 08:00 06/22/23 08:12 06/22/23 08:00 06/22/23 08:12 06/22/23 08:00 General: Alert, Oriented x3 Neck: Supple Respiratory: Clear to auscultation bilaterally, Diminished Cardiovascular: No edema, Regular rate/rhythm, Normal S1 S2 Gastrointestinal: Normal bowel sounds, Soft and benign, Non-distended - Problems (1) Pleural effusion Current Visit: Yes Status: Acute Plan: Patient is 67 years of age s/p liver transplant in5 yrsadmitted with a massive pleural effusion on the left side formal smoker quit in 2017 patient is vaping chest x-ray after the procedure shows left basilar pneumothorax significant improvement patient has a minimal fever no active evidence of sepsis has mild chronic renal insufficiency mild neutrophil predominance chemistries pending diastolic dysfunction on echocardiogram blood pressure is mildly elevated check room air pulse ox ambulate repeat chest x-ray plan for discharge follow-up with me next week may end up needing a thoracoscopy
[2023-06-22] MEDS: LIDOCAINE 4% PATCH TOP SCH (12:36)
[2023-06-22] MEDS: HYDROCODONE/APAP 10/325 TAB PO PRN ×2 (12:42→18:53)
--- NOTE | 2023-06-22 13:19 | P.DS ---
Admission Date: 06/21/23 Discharge Date: 06/22/23 Disposition: ROUTINE DISCHARGE Discharge Condition: FAIR Reason for Admission: SOB Brief History of Present Illness: 67-year-old female with past medical history hypothyroidism, liver transplant 2018, diabetes type 2IDDM, chronic pain from scoliosis and fibromyalgia, Atrial fibrillation, and right pleural effusion who presents to the ED with complaints of shortness of breath, dizziness, low blood pressure. Upon examination CT scan reported large pleural effusion to left lung space. Dr. Henderson performed that thoracentesis this morning pulling out to 1.8 L of fluid which was sent to the lab for evaluation. Marzena tolerated this well. On initial examination Marzena is on room 2 L nasal cannula, able to talk complete sentences, and in no acute distress. while in the ED she was given albumin, Reglan, and 1500 normal saline. Initial vital BP 93 / 45; Pulse 51; Resp 18; Temp 98; Pulse Ox 94% on R/A. Lab values mostly unremarkable BNP 1506. CT CAP reports "Stable 3.1 cm abdominal aortic aneurysm, Large left pleural effusion. Extensive near complete left lung consolidation/collapse. Superimposed infiltrate is not excluded". EKG reports "Marked sinus bradycardia, Right bundle branch block, Abnormal ECG, Compared to ECG 08/15/2010 09:11:44 Right bundle-branch block now present Sinus rhythm no longer present" Chest x-ray report "suggestive of central congestion/CHF, with a moderate pleural effusion. Underlying left lung pneumonia cannot be excluded." Echocardiogram report "EF 56%, mild mitral and tricuspid regurgitation, moderate diastolic dysfunction" Patient was admitted for further management. Hospital Course: Diagnosis Acute respiratory failure with hypoxia Left pleural effusion Atrial fibrillation Acute on chronic diastolic heart failure History of liver transplant Long-term anticoagulant use. Patient placed on observation on the medical floor and monitored after thoracentesis. Pleural fluid analysis suggestive of transudate. Pleural fluid cultures yielded no growth to date. He was initially requiring more oxygen which was weaned off. Patient is complaining of low back pain which is chronic. This was managed with [place], IV morphine and lidocaine patch. Repeat checks x-ray showed normal pneumothorax. Patient is clinically improved and deemed stable for discharge. Her torsemide maintenance dose has been increased. Vital Signs/Physical Exam: Temp Pulse Resp BP Pulse Ox 98.2 F 65 16 147/77 H 91 06/22/23 12:00 06/22/23 12:00 06/22/23 12:00 06/22/23 12:00 06/22/23 12:00 General: Alert, In no apparent distress, Oriented x3 HEENT: Mucous membr. moist/pink Neck: Supple, JVD not distended Respiratory: Clear to auscultation bilaterally, Normal air movement Cardiovascular: No edema, Regular rate/rhythm, Normal S1 S2 Gastrointestinal: Normal bowel sounds, Soft and benign, Non-distended, No tenderness Musculoskeletal: No swelling, Tenderness (mid right back) Integumentary: No rashes, No cyanosis Neurological: Normal strength at 5/5 x4 extr Laboratory Data at Discharge: WBC 7.60 thou/uL (4.3-10.9) 06/22/23 04:41 Hgb 12.9 g/dL (12.0-15.0) 06/22/23 04:41 Hct 37.3 % (36.0-45.0) 06/22/23 04:41 Plt Count 202 thou/uL (152-406) 06/22/23 04:41 PT 17.7 SECONDS (9.5-12.5) H 06/20/23 21:38 INR 1.61 06/20/23 21:38 Sodium 142 mEq/L (136-145) 06/22/23 04:41 Potassium 4.5 mEq/L (3.5-5.1) 06/22/23 04:41 BUN 24 mg/dL (7-18) H 06/22/23 04:41 Creatinine 1.32 mg/dL (0.55-1.02) H 06/22/23 04:41 Glucose 172 mg/dL (74-106) H 06/22/23 04:41 Phosphorus 4.0 mg/dL (2.5-4.9) 06/22/23 04:41 Magnesium 2.0 mg/dL (1.6-2.4) 06/22/23 04:41 Total Bilirubin 0.6 mg/dL (0.2-1.0) 06/20/23 21:38 AST 18 U/L (15-37) 06/20/23 21:38 ALT 16 U/L (13-56) 06/20/23 21:38 Alkaline Phosphatase 134 U/L (45-117) H 06/20/23 21:38 Home Medications: Alendronate Sodium 70 mg PO EVERY 7TH DAY 09/19/22 Ergocalciferol (Vitamin D2) [Vitamin D2] 50,000 unit PO WE 09/19/22 Escitalopram Oxalate 20 mg PO DAILY 09/19/22 Gabapentin 2 tab PO BID 09/19/22 Insulin NPH Human Isophane [Novolin N] 10 unit SQ DAILY 09/19/22 Levothyroxine Sodium 1 tab PO DAILY 09/19/22 Liothyronine Sodium [Cytomel] 5 mcg PO DAILY 09/19/22 Magnesium Oxide [Magnesium] 400 mg PO DAILY 09/19/22 Pantoprazole Sodium 2 tab PO DAILY 09/19/22 Tacrolimus 1 mg PO DAILY 09/19/22 Zinc Gluconate [Zinc] 50 mg PO DAILY 09/19/22 estradioL [Estradiol] 2 mg VG DIRECTED 09/19/22 Baclofen 10 mg PO BEDTIME 06/21/23 Fludrocortisone [Florinef *] 0.1 mg PO DIRECTED 06/21/23 Hydralazine HCl 25 mg PO DIRECTED 06/21/23 Hydralazine HCl 50 mg PO DAILY 06/21/23 Metoprolol Tartrate 25 mg PO BID 06/21/23 Rivaroxaban [Xarelto] 20 mg PO DAILY 06/21/23 Tizanidine HCl 2 mg PO BEDTIME 06/21/23 Lidocaine 4% Patch [Lidoderm 5% Patch*] 1 patch TOP DAILY #30 pat 06/22/23 Torsemide [Demadex*] 40 mg PO DAILY #60 tab 06/22/23 New Medications: Torsemide [Demadex*] 40 mg PO DAILY #60 tab Lidocaine 4% Patch [Lidoderm 5% Patch*] 1 patch TOP DAILY #30 pat Diet: AHA Activity: Fall precautions Followup: Ramy Glass DO [Primary Care Provider] - 1-2 Weeks Time spent managing pt's care (in minutes): 28
--- NOTE | 2023-06-22 14:54 | RAD REPORT ---
EXAM DESCRIPTION: [place] Single View06/22/2023 2:02 pm CLINICAL HISTORY: Thoracentesis COMPARISON: June 21, 2023 FINDINGS: No pneumothorax is seen. Haziness left hemithorax likely combination of pleural effusion and atelectasis. There could be compo nent of unilateral pulmonary edema. Right lung appears clear of acute infiltrate.
--- NOTE | 2023-06-22 18:24 | P.PN ---
Subjective Date of Service: 06/22/23 Chief Complaint: SOB Patient is complaining of mid back pain. She reports improvement in her shortness of breath but she is still hypoxic on room air. Physical Examination - Vital Signs Temperature: 98.0 F Blood Pressure: 151/74 Pulse: 65 Respirations: 16 Pulse Ox (%): 90 Assessment And Plan - Plan Physical Exam General: Alert, In no apparent distress, Oriented x3 Neck: Supple, JVD not distended Respiratory: Adequate breath sounds bilaterally, mild Rales-left lung Cardiovascular: No edema, Irregular heart rate/rhythm -bradycardic Gastrointestinal: Normal bowel sounds, Soft and benign Musculoskeletal: No clubbing, No swelling. Integumentary: No rashes, No breakdown, No significant lesion Neurological: Normal speech, Normal strength at 5/5 x4 extr, Normal tone Acute respiratory failure with hypoxia s/s Left sided pleural effusion Left sided pleural effusion US guided Throacentesis. 1.8 liters off On 3 LNC sating 96%. Patient desaturated on room air. Repeat checks x-ray shows possible left sided atelectasis versus interstitial edema IV Lasix. Wean off oxygen as tolerated s/p Liver Transplant Continue home medication tacrolimus/Prograf patient provides Stable 3.1 cm abdominal aortic aneurysm Incidental finding on CT CAP Outpatient follow-up Acute on chronic diastolic heart failure Chronic Afib Rate controlled with metoprolol. Continue telemetry Continue Xarelto IV Lasix. DM2 IDDM Accucheck with SSI DVT ppx: on xarelto Full code LOS 2-3 days
[2023-06-22] MEDS ORDERED: D50W 25 GM/50 ML SYRINGE IV PRN (18:28)
[2023-06-22] MEDS ORDERED: GLUCAGON 1 MG/VIAL IM PRN (18:28)
[2023-06-22] MEDS: FUROSEMIDE 40 MG/4 ML VIAL IV SCH (18:48)
[2023-06-22] MEDS ORDERED: D10W 125 ML IV PRN (19:31)
[2023-06-22] MEDS: BACLOFEN 10 MG TAB PO SCH (20:59)
[2023-06-22] MEDS: INSULIN REGULAR (HUMAN) 100 UNIT/ML SQ SCH (21:00)
[2023-06-23 05:14] LABS: Hematocrit 33.8 % (36.0-45.0); Lymphocytes % 14.2 % (15.3-44.8); MCV 89.9 fL (80-100); MPV 6.6 fL (7.6-11.3); Platelets 177 thou/uL (152-406); RBC Red Blood Cell Count 3.76 M/uL (3.86-4.86)
[2023-06-23 05:39] LABS: Magnesium 1.4 mg/dL (1.6-2.4); Potassium 4.5 mEq/L (3.5-5.1)
[2023-06-23] MEDS ORDERED: Magnesium Sulfate 2gm IVPB 2 G/50 ML BAG IV ONE (06:00)
[2023-06-23] MEDS: INSULIN REGULAR (HUMAN) 100 UNIT/ML SQ SCH ×4 (07:30→21:20)
[2023-06-23] MEDS: GABAPENTIN 300 MG CAP PO SCH (09:10)
[2023-06-23] MEDS: LEVOTHYROXINE SOD 0.125 MG TAB PO SCH (09:10)
[2023-06-23] MEDS: LIOTHYRONINE SOD 5 MCG TAB PO SCH (09:11)
[2023-06-23] MEDS: ESCITALOPRAM 20 MG TAB PO SCH (09:11)
[2023-06-23] MEDS: HYDROCODONE/APAP 10/325 TAB PO PRN ×2 (09:11→18:39)
[2023-06-23] MEDS: METOPROLOL TAR 25 MG TAB PO SCH ×2 (09:11→21:20)
[2023-06-23] MEDS: PANTOPRAZOLE 40MG TABLET PO SCH (09:12)
--- NOTE | 2023-06-23 09:52 | P.PN ---
Subjective Date of Service: 06/23/23 Chief Complaint: SOB pleural effusion Patient has been more short of breath today complaining of some left-sided chest discomfort hypoxic Review of Systems General: Weakness Respiratory: Shortness of Breath Cardiovascular: Chest Pain Physical Examination - Vital Signs Temperature: 98.8 F Blood Pressure: 148/69 Pulse: 78 Respirations: 18 Pulse Ox (%): 90 - Physical Exam General: Alert, Oriented x3, Moderate distress Respiratory: Diminished (Diminished on the left side) Cardiovascular: No edema, Regular rate/rhythm, Normal S1 S2 Assessment And Plan - Current Problems (Diagnosis) (1) Pleural effusion Current Visit: Yes Status: Acute Plan: Patient is s/p thoracentesis slightly worse today complaining of shortness of breath also hypoxic she has good has some diastolic dysfunction add Lasix renal function has improved chemistries and cytology is pending agree with Ale chemistries on pleural fluid and cytology is pending. Chest x-ray PA and lateral including bilateral decubitus will check with the pathologist tomorrow if nondiagnostic plan to transfer to [place] for thoracoscopy no evidence of pulmonary embolism on CT dissection
[2023-06-23 10:56] VITALS: BMI 29.2
[2023-06-23] MEDS: FUROSEMIDE 40 MG/4 ML VIAL IV SCH ×2 (11:24→18:41)
[2023-06-23] MEDS: LIDOCAINE 4% PATCH TOP SCH (13:28)
--- NOTE | 2023-06-23 15:25 | RAD REPORT ---
EXAM DESCRIPTION: RAD - Chest Pa And Lat (2 Views) - 06/23/2023 3:18 pm CLINICAL HISTORY: Pleural effusion Chest pain. COMPARISON: <Comparisons> FINDINGS: Moderate left pleural effusion is noted. Atelectasis is likely present in the left lung ba se. The right lung is grossly clear. The heart is mildly enlarged in size.
--- NOTE | 2023-06-23 15:26 | RAD REPORT ---
EXAM DESCRIPTION: RAD - Chest Lateral Decubitus - 06/23/2023 3:18 pm CLINICAL HISTORY: Pleural effusion COMPARISON: <Comparisons> FINDINGS: Left pleural effusion is seen to be mostly free-flowing, measuring up to 3 cm in maximum d epth. No right-sided pleural effusion seen.
--- NOTE | 2023-06-23 16:31 | P.PN ---
Subjective Date of Service: 06/23/23 Chief Complaint: SOB pleural effusion Patient states her back pain is better. She reports improvement in her shortness of breath but she is hypoxic on room air. Physical Examination - Vital Signs Temperature: 98.1 F Blood Pressure: 157/73 Pulse: 69 Respirations: 17 Pulse Ox (%): 92 - Studies Laboratory Data (last 24 hrs) 06/23/23 06/23/23 04:17 04:17 WBC 7.10 Hgb 11.7 L D Hct 33.8 L Plt Count 177 Sodium 139 Potassium 4.5 BUN 25 H Creatinine 1.07 H Glucose 200 H Phosphorus 3.0 Magnesium 1.4 L Microbiology Data (last 24 hrs): 06/21/23 10:40 Body Fluid - Pleural Fluid Gram Stain - Final 06/21/23 10:40 Body Fluid - Pleural Fluid Culture & Sensitivity - Final No growth. Assessment And Plan - Plan Physical Exam General: Alert, In no apparent distress, Oriented x3 Neck: Supple, JVD not distended Respiratory: Adequate breath sounds bilaterally, mild Rales-left lung Cardiovascular: No edema, Irregular heart rate/rhythm -bradycardic Gastrointestinal: Normal bowel sounds, Soft and benign Musculoskeletal: No clubbing, No swelling. Integumentary: No rashes, No breakdown, No significant lesion Neurological: Normal speech, Normal strength at 5/5 x4 extr, Normal tone. Assessment and plan: Acute respiratory failure with hypoxia s/s Left sided pleural effusion Left sided pleural effusion US guided Throacentesis. 1.8 liters off On 3 LNC sating 96%. Patient still hypoxic on rrom air. Repeat checks x-ray shows possible left sided atelectasis versus interstitial edema Continue IV Lasix. Pulmonary input appreciated. Wean off oxygen as tolerated. Activity as tolerated. s/p Liver Transplant Continue home medication tacrolimus/Prograf Stable 3.1 cm abdominal aortic aneurysm Incidental finding on CT CAP Outpatient follow-up Acute on chronic diastolic heart failure Chronic Afib Rate controlled with metoprolol. Continue telemetry Continue Xarelto IV Lasix. DM2 IDDM Accucheck with SSI DVT ppx: on xarelto Full code LOS 2-3 days
[2023-06-23] MEDS: BACLOFEN 10 MG TAB PO SCH (21:19)
[2023-06-24] MEDS ORDERED: METOPROLOL TAR 25 MG TAB PO ONE (01:00)
[2023-06-24] MEDS: HYDROCODONE/APAP 10/325 TAB PO PRN (01:12)
[2023-06-24 03:36] LABS: Absolute Lymphocytes (CBC) 1.4 K/uL (0.7-4.9); Lymphocytes % 14.2 % (15.3-44.8); MCV 89.1 fL (80-100); MPV 6.6 fL (7.6-11.3); Platelets 205 thou/uL (152-406); RBC Red Blood Cell Count 4.26 M/uL (3.86-4.86)
[2023-06-24] MEDS: MORPHINE 2 MG/ML SYR IV PRN ×2 (04:16→23:57)
[2023-06-24 04:34] LABS: Albumin 3.2 g/dL (3.4-5.0); Bilirubin Total 1.4 mg/dL (0.2-1.0); Magnesium 1.2 mg/dL (1.6-2.4); Phosphorus 2.5 mg/dL (2.5-4.9); Protein, Total 6.5 g/dL (6.4-8.2)
[2023-06-24] MEDS: METOPROLOL TAR 25 MG TAB PO SCH ×2 (06:20→17:10)
[2023-06-24] MEDS: INSULIN REGULAR (HUMAN) 100 UNIT/ML SQ SCH ×4 (07:30→21:00)
[2023-06-24] MEDS: ESCITALOPRAM 20 MG TAB PO SCH (08:48)
[2023-06-24] MEDS: LIOTHYRONINE SOD 5 MCG TAB PO SCH (08:48)
[2023-06-24] MEDS: PANTOPRAZOLE 40MG TABLET PO SCH (08:48)
[2023-06-24] MEDS: LEVOTHYROXINE SOD 0.125 MG TAB PO SCH (08:50)
[2023-06-24] MEDS: FUROSEMIDE 40 MG/4 ML VIAL IV SCH (08:50)
[2023-06-24] MEDS ORDERED: Magnesium Sulfate 2gm IVPB 2 G/50 ML BAG IV ONE (09:00)
[2023-06-24] MEDS ORDERED: FLUDROCORTISONE 0.1 MG TAB PO SCH (09:00)
[2023-06-24] MEDS: LIDOCAINE 4% PATCH TOP SCH (10:50)
--- NOTE | 2023-06-24 15:16 | P.PN ---
Subjective Date of Service: 06/24/23 Chief Complaint: SOB pleural effusion Patient noted to be confused since last night. She denies shortness of breath but still hypoxic on room air. No recorded fever. Physical Examination - Vital Signs Temperature: 98.5 F Blood Pressure: 130/62 Pulse: 90 Respirations: 16 Pulse Ox (%): 95 - Studies Microbiology Data (last 24 hrs): 06/21/23 10:40 Body Fluid - Pleural Fluid Gram Stain - Final 06/21/23 10:40 Body Fluid - Pleural Fluid Culture & Sensitivity - Final No growth. Assessment And Plan - Plan Physical Exam General: Alert, In no apparent distress, Oriented x 1 Neck: Supple, JVD not distended Respiratory: Adequate breath sounds bilaterally, mild Rales-left lung, diminished breath sounds- left lower base Cardiovascular: No edema, Irregular heart rate/rhythm -bradycardic Gastrointestinal: Normal bowel sounds, Soft and benign Musculoskeletal: No clubbing, No swelling. Integumentary: No rashes, No breakdown, No significant lesion Neurological: Normal speech, Normal strength at 5/5 x4 extr, Normal tone. Assessment and plan: Acute respiratory failure with hypoxia s/s Left sided pleural effusion Left sided pleural effusion US guided Throacentesis. 1.8 liters off On 2 LNC sating 96%. Patient still hypoxic on room air. Repeat chest x-ray shows left moderate pleural effusion. Continue IV Lasix. Pulmonary is following Wean off oxygen as tolerated. Activity as tolerated. s/p Liver Transplant Continue home medication tacrolimus/Prograf Stable 3.1 cm abdominal aortic aneurysm Incidental finding on CT CAP Outpatient follow-up Acute on chronic diastolic heart failure Chronic Afib Heart rate rate controlled with metoprolol. Continue telemetry Continue Xarelto Continue IV Lasix. Acute metabolic encephalopathy Likely drug-induced. Patient's gabapentin was recently doubled and she has been getting the new dose- 600 mg twice daily since admission Gabapentin and baclofen on hold for now. DM2 IDDM Accucheck with SSI DVT ppx: on xarelto Full code s
--- NOTE | 2023-06-24 16:49 | P.PN ---
Subjective Date of Service: 06/24/23 Chief Complaint: SOB pleural effusion. Delirium PT disoriented to place only Still short of breath. Review of Systems General: Weakness Neurological: Confusion Physical Examination - Vital Signs Temperature: 98.5 F Blood Pressure: 130/62 Pulse: 90 Respirations: 16 Pulse Ox (%): 95 - Physical Exam General: Alert, In no apparent distress, Oriented x3 HEENT: Atraumatic Respiratory: Clear to auscultation bilaterally Cardiovascular: No edema, Normal pulses Gastrointestinal: Normal bowel sounds, Soft and benign Musculoskeletal: No clubbing, No swelling Neurological: Normal speech, Normal strength at 5/5 x4 extr, Cranial nerves 3-12 intact Assessment And Plan - Current Problems (Diagnosis) (1) Pleural effusion Current Visit: Yes Status: Acute Plan: Left sided effusion NE of infection/Cytology neg/ Refer to thoracic as out patient (2) Confusion and disorientation Current Visit: Yes Status: Acute Plan: Acute likley SE of high doses of Gabapentin Dose increased in hospital. Will hold Doubt stroke or TIA. Poss D/C am
[2023-06-25 03:13] LABS: Specific Gravity 1.016 (1.005-1.030); Urine Bacteria <20 /HPF (<20); Urine Bilirubin NEGATIVE (Negative); Urine Blood Negative (Negative); Urine Clarity Turbid (Clear); Urine Color Yellow (Yellow); Urine Glucose NEGATIVE (Negative); Urine Protein TRACE (Negative); Urine RBC <5 /HPF (None Seen); Urine Urobilinogen Normal (Normal)
[2023-06-25 03:26] LABS: Absolute Lymphocytes (CBC) 1.2 K/uL (0.7-4.9); Hematocrit 36.7 % (36.0-45.0); Lymphocytes % 14.6 % (15.3-44.8); MPV 6.7 fL (7.6-11.3); Platelets 186 thou/uL (152-406); RBC Red Blood Cell Count 4.12 M/uL (3.86-4.86)
[2023-06-25 03:38] LABS: Magnesium 1.6 mg/dL (1.6-2.4); Potassium 4.6 mEq/L (3.5-5.1)
[2023-06-25] MEDS: MORPHINE 2 MG/ML SYR IV PRN ×2 (04:20→11:09)
[2023-06-25] MEDS: METOPROLOL TAR 25 MG TAB PO SCH ×2 (06:18→16:54)
[2023-06-25] MEDS ORDERED: LORAZEPAM 0.5 MG TABLET PO ONE (07:04)
[2023-06-25] MEDS: INSULIN REGULAR (HUMAN) 100 UNIT/ML SQ SCH ×4 (07:30→21:00)
--- NOTE | 2023-06-25 07:59 | RAD REPORT ---
EXAM DESCRIPTION: RAD - Chest Single View - 06/25/2023 4:40 am CLINICAL HISTORY: f/u effusion Chest pain. COMPARISON: Chest Pa And Lat (2 Views) dated 06/23/2023; Chest Single View dated 06/22/2023; Chest S nidia View dated 06/21/2023; Chest Single View dated 06/20/2023 FINDINGS: Portable technique limits examination quality. Moderate left pleural effusion again noted. Mild bilateral pulmonary opacities, greater on the left, suggest pulmonary edema. The heart is mildly enlarged in size.
[2023-06-25 08:13] LABS: Albumin 3.3 g/dL (3.4-5.0); Bilirubin Direct 1.1 mg/dL (0-0.2); Bilirubin Indirect, Calculated 1.7 mg/dL (0.2-0.8); Bilirubin Total 2.8 mg/dL (0.2-1.0); Protein, Total 6.7 g/dL (6.4-8.2)
[2023-06-25] MEDS: TACROLIMUS 1 MG PO SCH ×2 (08:45→09:00)
--- NOTE | 2023-06-25 08:57 | P.PN ---
Date of Service: 06/25/23 Subjective: Didn't sleep well; agitated overnight/this morning Breathing a little more comfortably today; on 2.5L NC reports liver transplant ~5 yrs ago; done at [facility] in [place] in normal sinus rhythm afebrile ROS: 10 point ROS as noted above, otherwise negative Physical Exam: GEN: Alert, orientedx1, NAD HEENT: Normal conjunctiva, sclera anicteric CV: Regular rate and rhythm, no edema Pulm: Nonlabored respirations on 2.5L NC, mild Rales-left lung, diminished at lower left base ABD: Soft, nontender, nondistended Neuro: Normal speech, normal affect vitals reviewed Problem List: Acute hypoxic respiratory failure Left sided pleural effusion, s/p thoracentesis (06/21) s/p Liver Transplant (2017) Elevated LFTs Acute metabolic encephalopathy Acute on chronic diastolic CHF chronic A-fib, on anticoagulation Stable 3.1 cm abdominal aortic aneurysm IDDM2 Acute hypoxic respiratory failure Left sided pleural effusion, s/p thoracentesis (06/21) CTA chest/abdomen (06/20): Large left pleural effusion. Stable 3.1 cm abdominal aortic aneurysm. Mild circumferential urinary bladder wall thickening repeat CXR (06/25): Moderate left pleural effusion. Mild bilateral pulmonary opacities, L > R suggest pulmonary edema Pulm consulted s/p Thoracentesis (06/21) 1.8L removed On 2.5 LNC sating 96%. Patient still hypoxic on room air. Wean off oxygen as tolerated. IV lasix switched to PO Spironolactone BID 06/25 Activity as tolerated. s/p Liver Transplant (2017) Elevated LFTs ~5 years since transplant per patient. follows up at [facility] Continue home medication tacrolimus/Prograf LFTs worse 06/25; Continue to monitor liver u/s (06/25): ordered for further eval Start lactulose Transfer initiated to [facility] 06/25 given worsening LFTs, no GI honey producer Acute metabolic encephalopathy suspect drug-induced. Patient's gabapentin was recently doubled and she has been getting the new dose- 600 mg twice daily since admission Hold Gabapentin and baclofen for now. CT head (06/25): ordered Acute on chronic diastolic CHF chronic A-fib, on anticoagulation echo (06/21): 56% EF, mild concentric left ventricular hypertrophy, left atrial enlargement, mild MR/TR, mod diastolic dysfunction Heart rate controlled with metoprolol. Monitor on telemetry resume home xarelto Continue IV Lasix. Stable 3.1 cm abdominal aortic aneurysm Stable 3.1 cm abdominal aortic aneurysm incidentally seen on CTA chest/abdomen/pelvis (06/20) Recommend f/u outpatient every 3 years IDDM2 Accucheck with SSI VTE: resume Xarelto Code: Full Dispo: Transfer initiated to [facility] 06/25 given worsening LFTs, no GI honey producer Pending further improvement
[2023-06-25] MEDS ORDERED: LACTULOSE 20 GM/30 ML UCUP PO ONE ×2 (08:58→16:30)
[2023-06-25] MEDS ORDERED: FUROSEMIDE 40 MG/4 ML VIAL IV SCH (09:00)
[2023-06-25] MEDS ORDERED: MAGNESIUM SULFATE 1 gm IVPB 1 GM/100 ML BAG IV ONE (09:00)
--- NOTE | 2023-06-25 09:43 | RAD REPORT ---
EXAM DESCRIPTION: CT - Head Brain W/Wo Con - 06/25/2023 9:29 am CLINICAL HISTORY: RO mets Headache, drowsiness, evaluate for metastatic disease COMPARISON: Angio Aorta For Dissection dated 06/20/2023; Thoracentesis w/ US Guide dated 06/21/2023 ; Chest Single View dated 06/25/2023 TECHNIQUE: All CT scans are performed using dose optimization technique as appropriate and may inclu de automated exposure control or mA/KV adjustment according to patient size. FINDINGS: No intracranial hemorrhage, hydrocephalus or extra-axial fluid collection.Mild generalized brain atrophy is present with mild periventricular and deep white matter chronic microvascular ische keturah changes.No areas of brain edema or evidence of midline shift. The paranasal sinuses and mastoids are clear. The calvarium is intact. Postcontrast sequences through the brain shows no pathologic areas of enhancement. IMPRESSION: No acute intracranial abnormality. No post-contrast finding seen to suspect intracrania l metastatic deposits.
[2023-06-25 10:36] LABS: Protime INR 1.25
[2023-06-25] MEDS: LIDOCAINE 4% PATCH TOP SCH (10:54)
[2023-06-25] MEDS: LIOTHYRONINE SOD 5 MCG TAB PO SCH (10:55)
[2023-06-25] MEDS: PANTOPRAZOLE 40MG TABLET PO SCH (10:55)
[2023-06-25] MEDS: ESCITALOPRAM 20 MG TAB PO SCH (10:55)
[2023-06-25] MEDS: SPIRONOLACTONE 25 MG TABLET PO SCH ×2 (10:55→22:30)
[2023-06-25] MEDS: THIAMINE 200 MG/2 ML INJ IVP SCH ×2 (10:55→22:30)
[2023-06-25] MEDS: LEVOTHYROXINE SOD 0.125 MG TAB PO SCH (10:56)
--- NOTE | 2023-06-25 11:03 | RAD REPORT ---
EXAM DESCRIPTION: US - Liver Only - 06/25/2023 9:39 am CLINICAL HISTORY: Abnormal liver function tests Abdominal pain COMPARISON: Thoracentesis w/ US Guide dated 06/21/2023; Angio Aorta For Dissection dated 06/20/2023 FINDINGS: The liver has a heterogenous appearance which may be related to underlying fatty infiltrat ion or chronic inflammatory condition.No focal liver lesion or intrahepatic biliary dilatation.No nic dence of portal vein thrombosis. Gallbladder appears absent with common duct measuring up to 10 mm. Spleen measures 12 cm. IMPRESSION: Heterogenous appearance of the liver parenchyma is seen which may represent underlying f atty infiltration or chronic inflammation. Cholecystectomy with mildly prominent common duct measuring up to 10 mm. MRCP may be useful for furth er evaluation of the biliary tree.
--- NOTE | 2023-06-25 13:51 | P.DS ---
Admission Date: 06/23/23 Discharge Date: 06/25/23 Discharge Condition: FAIR Reason for Admission: SOB pleural effusion. Delirium Brief History of Present Illness: 67yo F, PMH: hypothyroidism, liver transplant 2018, diabetes type 2IDDM, chronic pain from scoliosis and fibromyalgia, Atrial fibrillation, and right pleural effusion Patient presents to the ED with complaints of shortness of breath, dizziness, low blood pressure. Marzena reports shortness of breath onset yesterday and she made a doctor's appointment for today where her low blood pressure was found. Upon examination CT scan reported large pleural effusion to left lung space requiring thoracentesis. Dr. Henderson performed that thoracentesis this morning pulling out to 1.8 L of fluid which was sent to the lab for evaluation. Marzena tolerated this well. On initial examination Marzena is on room 2 L nasal cannula, able to talk complete sentences, and in no acute distress. while in the ED she was given albumin, Reglan, and 1500 normal saline. Initial vital BP 93 / 45; Pulse 51; Resp 18; Temp 98; Pulse Ox 94% on R/A. Lab values mostly unremarkable BNP 1506. CT CAP reports "Stable 3.1 cm abdominal aortic aneurysm, Large left pleural effusion. Extensive near complete left lung consolidation/collapse. Superimposed infiltrate is not excluded". EKG reports "Marked sinus bradycardia, Right bundle branch block, Abnormal ECG, Compared to ECG 08/15/2010 09:11:44 Right bundle-branch block now present Sinus rhythm no longer present" Chest x-ray report "suggestive of central congestion/CHF, with a moderate pleural effusion. Underlying left lung pneumonia cannot be excluded." Echocardiogram report "EF 56%, mild mitral and tricuspid regurgitation, moderate diastolic dysfunction" Hospital Course: Problem List: Acute hypoxic respiratory failure Left sided pleural effusion, s/p thoracentesis (06/21) s/p Liver Transplant (2018) Elevated LFTs Acute metabolic encephalopathy Acute on chronic diastolic CHF chronic A-fib, on anticoagulation Stable 3.1 cm abdominal aortic aneurysm IDDM2 Physical Exam: GEN: Alert, orientedx1, NAD HEENT: Normal conjunctiva, sclera anicteric CV: Regular rate and rhythm, no edema Pulm: Nonlabored respirations on 2.5L NC, mild Rales-left lung, diminished at lower left base ABD: Soft, nontender, nondistended Neuro: Normal speech, normal affect Vital Signs/Physical Exam: Temp Pulse Resp BP Pulse Ox 97.9 F 74 18 168/92 H 97 06/25/23 08:00 06/25/23 11:00 06/25/23 11:09 06/25/23 11:00 06/25/23 11:09 Laboratory Data at Discharge: WBC 8.20 thou/uL (4.3-10.9) 06/25/23 01:36 Hgb 12.9 g/dL (12.0-15.0) 06/25/23 01:36 Hct 36.7 % (36.0-45.0) 06/25/23 01:36 Plt Count 186 thou/uL (152-406) 06/25/23 01:36 PT 13.7 SECONDS (9.5-12.5) H 06/25/23 10:15 INR 1.25 06/25/23 10:15 Sodium 134 mEq/L (136-145) L 06/25/23 01:36 Potassium 4.6 mEq/L (3.5-5.1) D 06/25/23 01:36 BUN 25 mg/dL (7-18) H 06/25/23 01:36 Creatinine 1.07 mg/dL (0.55-1.02) H 06/25/23 01:36 Glucose 164 mg/dL (74-106) H 06/25/23 01:36 Phosphorus 3.0 mg/dL (2.5-4.9) 06/25/23 01:36 Magnesium 1.6 mg/dL (1.6-2.4) 06/25/23 01:36 Total Bilirubin 2.8 mg/dL (0.2-1.0) H 06/25/23 01:36 AST 381 U/L (15-37) H 06/25/23 01:36 ALT 241 U/L (13-56) H 06/25/23 01:36 Alkaline Phosphatase 385 U/L (45-117) H D 06/25/23 01:36 Home Medications: Alendronate Sodium 70 mg PO EVERY 7TH DAY 09/19/22 Ergocalciferol (Vitamin D2) [Vitamin D2] 50,000 unit PO WE 09/19/22 Escitalopram Oxalate 20 mg PO DAILY 09/19/22 Gabapentin 2 tab PO BID 09/19/22 Insulin NPH Human Isophane [Novolin N] 10 unit SQ DAILY 09/19/22 Levothyroxine Sodium 1 tab PO DAILY 09/19/22 Liothyronine Sodium [Cytomel] 5 mcg PO DAILY 09/19/22 Magnesium Oxide [Magnesium] 400 mg PO DAILY 09/19/22 Pantoprazole Sodium 2 tab PO DAILY 09/19/22 Tacrolimus 1 mg PO DAILY 09/19/22 Zinc Gluconate [Zinc] 50 mg PO DAILY 09/19/22 estradioL [Estradiol] 2 mg VG DIRECTED 09/19/22 Baclofen 10 mg PO BEDTIME 06/21/23 Fludrocortisone [Florinef *] 0.1 mg PO DIRECTED 06/21/23 Hydralazine HCl 25 mg PO DIRECTED 06/21/23 Hydralazine HCl 50 mg PO DAILY 06/21/23 Metoprolol Tartrate 25 mg PO BID 06/21/23 Rivaroxaban [Xarelto] 20 mg PO DAILY 06/21/23 Tizanidine HCl 2 mg PO BEDTIME 06/21/23 Lidocaine 4% Patch [Lidoderm 5% Patch*] 1 patch TOP DAILY #30 pat 06/22/23 Torsemide [Demadex*] 40 mg PO DAILY #60 tab 06/22/23 New Medications: Torsemide [Demadex*] 40 mg PO DAILY #60 tab Lidocaine 4% Patch [Lidoderm 5% Patch*] 1 patch TOP DAILY #30 pat Physician Discharge Instructions: Patient presented with worsening shortness of breath. She was found to have a large left pleural effusion first seen on CT. Pulm was consulted. Patient underwent thoracentesis on 06/21 and had improvement of her symptoms. 1.7L removed. Fluid cytology/cultures were negative. 06/25 Patients LFTs were noted to be elevated. Given patients recent liver transplant in 2018, worsening LFTs and no GI concession cashier, Transfer was [facility] to [facility] on 06/25. Liver ultrasound on 06/25 noted heterogenous appearance of the liver parenchyma which may represent underlying fatty infiltration or chronic inflammation. Cholecystectomy with mildly prominent common duct measuring up to 10 mm. Total Bili on discharge: 2.8 (normal limit 0.2-1.0) AST on discharge: 381 (normal limit 15-37) ALT on discharge: 241 (normal limit 13-56) Diet: AHA Activity: Fall precautions Followup: Prezas,Ramy, DO [Primary Care Provider] - 1-2 Weeks Time spent managing pt's care (in minutes): 45
[2023-06-25] MEDS: MELATONIN 5 MG TABLET PO SCH ×2 (18:00→20:12)
[2023-06-25 20:50] VITALS: BP 177/80; TEMP 98.3
[2023-06-25 22:49] VITALS: O2SAT 94
[2023-06-26] MEDS ORDERED: LEVOTHYROXINE SOD 0.125 MG TAB PO SCH (05:30)
[2023-06-26] MEDS ORDERED: FUROSEMIDE 40 MG/4 ML VIAL IV SCH (09:00)
--- NOTE | 2023-06-26 16:58 | EKG ---
Test Date: 2023-06-24 Test Time: 01:48:32 Radio Sales Account Executive: BERNADETTE MEASUREMENT RESULTS: Intervals: Rate: 126 LA: QRSD: 114 QT: 338 QTc: 489 [place]: P: LA: QRS: 67 T: 31 INTERPRETIVE STATEMENTS: Atrial fibrillation with rapid ventricular response Nonspecific ST abnormality, probably digitalis effect Abnormal ECG Compared to ECG 06/21/2023 22:52:32 ST (T wave) deviation now present Right bundle-branch block no longer present Electronically Signed On 06-26-23 16:52:39 EMERGENCY ROOM CLINICIAN by Steven Handy
--- NOTE | 2023-06-26 17:07 | EKG ---
Test Date: 2023-06-21 Test Time: 22:52:32 Facility Maintenance Mechanic: GURMEET MEASUREMENT RESULTS: Intervals: Rate: 130 MD: QRSD: 120 QT: 342 QTc: 503 [place]: P: MD: QRS: 52 T: 11 INTERPRETIVE STATEMENTS: Atrial fibrillation with rapid ventricular response Right bundle branch block Abnormal ECG Compared to ECG 06/20/2023 21:31:14 Sinus bradycardia no longer present Electronically Signed On 06-26-23 16:55:33 CAR SUPERVISOR by Steven Handy
--- NOTE | 2023-06-26 17:11 | EKG ---
Test Date: 2023-06-20 Test Time: 21:31:14 Wound Care Specialist: BRENDON MEASUREMENT RESULTS: Intervals: Rate: 50 CT: 156 QRSD: 124 QT: 470 QTc: 428 [place]: P: 38 CT: 156 QRS: 68 T: 56 INTERPRETIVE STATEMENTS: Sinus bradycardia Right bundle branch block Abnormal ECG Compared to ECG 06/20/2023 21:30:31 No significant changes Electronically Signed On 06-26-23 16:56:49 ORDER CHECKER PACKER PROCESSER by Steven Handy
== END 2023-06-25 22:46 | disposition short-term general hospital (02) | DRG 291 ==
LOC: ER 20:51 → ERHOLD 06-21 09:22 → 2ND 06-21 16:11 → OBSVTOIN 06-23 08:55
PROVIDERS: ADMIT Internal Medicine; ATTEND Hospitalist
PROC: 0W9B30Z Drainage of Left Pleural Cavity with Drainage Device, Percutaneous Approach (ICD-10-PCS; principal; 2023-06-23)
DX: I50.33 Acute on chronic diastolic (congestive) heart failure (principal); G92.8 Other toxic encephalopathy; J96.01 Acute respiratory failure with hypoxia; Z94.4 Liver transplant status; J91.8 Pleural effusion in other conditions classified elsewhere; I48.20 Chronic atrial fibrillation, unspecified; F05 Delirium due to known physiological condition; E03.9 Hypothyroidism, unspecified; E11.9 Type 2 diabetes mellitus without complications; I71.40 Abdominal aortic aneurysm, without rupture, unspecified; M41.9 Scoliosis, unspecified; I45.10 Unspecified right bundle-branch block; G89.29 Other chronic pain; M54.9 Dorsalgia, unspecified; I08.1 Rheumatic disorders of both mitral and tricuspid valves; M79.7 Fibromyalgia; T42.6X5A Adverse effect of other antiepileptic and sedative-hypnotic drugs, initial encounter; R79.89 Other specified abnormal findings of blood chemistry; Z79.4 Long term (current) use of insulin; Z79.01 Long term (current) use of anticoagulants; Z11.52 Encounter for screening for COVID-19; Z90.49 Acquired absence of other specified parts of digestive tract; Z90.710 Acquired absence of both cervix and uterus; Z87.891 Personal history of nicotine dependence; Z79.890 Hormone replacement therapy; Z79.899 Other long term (current) drug therapy
CPT/HCPCS: 32555; 36415; 70470; 71045; 71046; 71275; 74175; 76705; 80048; 80053; 80076; 81001; 82042; 82140; 82150; 82945; 82947; 83735; 83880; 84100; 84436; 84443; 84484; 85025; 85610; 86140; 87070; 87635; 87804; 88108; 88305; 89050; 93005; 93306; 96361; 96365; 96366; 99284; G0378; J1644; J1815; J1940; J2001; J2270; J3411; J3475; J7030; J7040; P9047; Q0162; Q9967